=== PATIENT | female | born 1965 | race Caucasian/White ===

== ENCOUNTER 2018-04-09 06:56 | Day surgery (SDC) | payer BC ==
[~2018-04-09] VITALS: Ht 157.5 cm; Wt 55.0 kg
[~2018-04-09 06:56] MED LIST: HYDR-569 PO; LIDOcaine 1%/PF 5ML 10 MG/ML VIAL IJ ONE; OMEP1CAP2 PO
[2018-04-09] MEDS ORDERED: albumin (human) 25% 100 ML IV solution IV PRN (07:15)
[2018-04-09] MEDS ORDERED: normal saline 1000ml 1,000 ML IV PRN (07:15)
[2018-04-09] MEDS ORDERED: CITA20TA2 PO (07:53)
[2018-04-09] MEDS ORDERED: ONDA4TAB9 PO (07:53)
[2018-04-09] MEDS ORDERED: HYDR-565 PO (07:53)
[2018-04-09] MEDS ORDERED: PROC5TAB PO (07:53)
[2018-04-09] MEDS ORDERED: [UNRECOGNIZED DRUG - OTHER] IV (07:53)
[2018-04-09] MEDS ORDERED: PROC5TAB56 PO (07:53)
[2018-04-09 08:04] VITALS: BP 126/77
[2018-04-09 08:30] VITALS: BP 128/79
[2018-04-09 08:45] VITALS: BP 135/82
[2018-04-09 09:00] VITALS: BP 136/84
== END 2018-04-09 09:00 | disposition home or self-care (01) ==
LOC: SSTAY O 06:56
PROVIDERS: ATTEND Radiology Diagnostic Radiology
DX: R18.8 Other ascites (principal); K21.9 Gastro-esophageal reflux disease without esophagitis; F32.9 Major depressive disorder, single episode, unspecified; Z85.41 Personal history of malignant neoplasm of cervix uteri; Z79.891 Long term (current) use of opiate analgesic; Z98.890 Other specified postprocedural states; Z88.8 Allergy status to other drugs, medicaments and biological substances; Z79.899 Other long term (current) drug therapy
CPT/HCPCS: 49083; A6257; J2001; J7030

== ENCOUNTER 2018-04-22 08:25 | Day surgery (SDC) | payer BC ==
[~2018-04-22] VITALS: Ht 157.5 cm; Wt 52.2 kg
[~2018-04-22 08:25] MED LIST changes: +CITA20TA2 PO; +HYDR-565 PO; -HYDR-569 PO; -LIDOcaine 1%/PF 5ML 10 MG/ML VIAL IJ ONE; +ONDA4TAB9 PO; +PROC5TAB PO; +PROC5TAB56 PO; +[UNRECOGNIZED DRUG - OTHER] IV
[2018-04-22] MEDS ORDERED: LIDOcaine 1%/PF 5ML 10 MG/ML VIAL SQ ONE (08:45)
[2018-04-22 08:46] VITALS: BP 107/72
[2018-04-22] MEDS ORDERED: albumin (human) 25% 100 ML IV solution IV PRN (08:50)
[2018-04-22] MEDS ORDERED: normal saline 1000ml 1,000 ML IV PRN (08:50)
[2018-04-22 08:58] VITALS: BP 117/78
[2018-04-22 09:05] VITALS: BP 115/81
[2018-04-22 09:15] VITALS: BP 106/72
[2018-04-22 09:23] VITALS: BP 100/69
== END 2018-04-22 09:30 | disposition home or self-care (01) ==
LOC: SSTAY O 08:25
PROVIDERS: ATTEND Radiology Diagnostic Radiology
DX: R18.8 Other ascites (principal); K21.9 Gastro-esophageal reflux disease without esophagitis; F32.9 Major depressive disorder, single episode, unspecified; Z85.43 Personal history of malignant neoplasm of ovary; Z79.891 Long term (current) use of opiate analgesic; Z88.8 Allergy status to other drugs, medicaments and biological substances; Z98.890 Other specified postprocedural states; Z79.899 Other long term (current) drug therapy
CPT/HCPCS: 49083; A6257; J2001; J7030

== ENCOUNTER 2018-04-29 07:50 | Day surgery (SDC) | payer BC ==
[~2018-04-29] VITALS: Ht 157.5 cm; Wt 52.3 kg
[~2018-04-29 07:50] MED LIST changes: +LIDOcaine 1%/PF 5ML 10 MG/ML VIAL SQ ONE
[2018-04-29] MEDS ORDERED: albumin (human) 25% 100 ML IV solution IV PRN (08:05)
[2018-04-29] MEDS ORDERED: normal saline 1000ml 1,000 ML IV PRN (08:05)
[2018-04-29 08:25] VITALS: BP 106/80
[2018-04-29 08:43] VITALS: BP 99/74
[2018-04-29 08:45] VITALS: BP 104/76
[2018-04-29 09:00] VITALS: BP 112/75
[2018-04-29 09:15] VITALS: BP 107/71
[2018-04-29 09:20] VITALS: BP 112/79
== END 2018-04-29 09:25 | disposition home or self-care (01) ==
LOC: SSTAY O 07:50
PROVIDERS: ATTEND Radiology Diagnostic Radiology
DX: R18.8 Other ascites (principal); K21.9 Gastro-esophageal reflux disease without esophagitis; F32.9 Major depressive disorder, single episode, unspecified; Z85.43 Personal history of malignant neoplasm of ovary; Z79.891 Long term (current) use of opiate analgesic; Z88.8 Allergy status to other drugs, medicaments and biological substances; Z98.890 Other specified postprocedural states; Z79.899 Other long term (current) drug therapy; Z82.49 Family history of ischemic heart disease and other diseases of the circulatory system
CPT/HCPCS: 49083; A6257; A6449; J2001; J7030

== ENCOUNTER 2018-05-07 08:38 | Day surgery (SDC) | payer BC ==
[~2018-05-07] VITALS: Ht 157.5 cm; Wt 52.3 kg
[2018-05-07] VITALS (8 sets, daily range): BP systolic 100–113; BP diastolic 52–74
[2018-05-07] MEDS ORDERED: albumin (human) 25% 100 ML IV solution IV PRN (09:00)
[2018-05-07] MEDS ORDERED: LORA-269 PO (09:08)
== END 2018-05-07 10:40 | disposition home or self-care (01) ==
LOC: SSTAY O 08:38
PROVIDERS: ATTEND Radiology Diagnostic Radiology
DX: R18.0 Malignant ascites (principal); K21.9 Gastro-esophageal reflux disease without esophagitis; F32.9 Major depressive disorder, single episode, unspecified; M34.89 Other systemic sclerosis; Z85.43 Personal history of malignant neoplasm of ovary; Z79.891 Long term (current) use of opiate analgesic; Z88.8 Allergy status to other drugs, medicaments and biological substances; Z79.899 Other long term (current) drug therapy; Z82.49 Family history of ischemic heart disease and other diseases of the circulatory system
CPT/HCPCS: 49083; A6257; J2001